=== PATIENT | female | born 1950 | race Caucasian/White ===

== ENCOUNTER 2020-02-27 09:24 | Emergency (ER) | payer MEDICARE, OTHER ==
[2020-02-27] MEDS ORDERED: cefTRIAXone 1 GM, Lidocaine 1% 2.1 ML IM ONE ×2 (09:36)
--- NOTE | 2020-02-27 09:46 | EDM.PDOC ---
ED HPI GENERAL MEDICAL PROBLEM - General Chief Complaint: Upper Extremity Injury/Pain Stated Complaint: cellulitis Time Seen by Provider: 02/27/20 09:40 Source of Information: Reports: Patient - History of Present Illness INITIAL COMMENTS - FREE TEXT/NARRATIVE: Patient comes into the emergency department with complaints of a left hand infection. Patient states that she was scratched by her cat on Saturday was seen in the clinic on Saturday and was prescribed amoxicillin. Patient states that the swelling, redness, and tenderness has increased over the course of the last 3 days. She did contact the clinic yesterday who told her to give it another 24 hours and reports emergency department if it did not get any better. Patient states that she woke up this morning her hand still progressively getting worse. She states that the redness, swelling, warmth, and tenderness is excruciating at times. She has taken Tylenol and ibuprofen to help with the pain discomfort. She also states that she is been taking amoxicillin as prescribed however she feels it is not working and it has caused significant amount of diarrhea. Patient states that she did start a probiotic last night and had no ill effects regarding the probiotic. Patient states that she is been relatively healthy has no other concerns or complaints. Patient states that she has been washing her hand on a daily basis to help keep it clean. Patient denies any range of motion or CMS concerns. Patient also denies any active fever, chest pain, shortness of breath, dizziness, lightheadedness, blurred vision, peripheral edema, or GI upset currently. Patient also denies any active COVID-19 symptoms and any positive tests. 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 Constitutional: Denies: Fever, Chills, Malaise, Weakness, Fatigue, Diaphoresis HEENT: Reports: No Symptoms Respiratory: Reports: No Symptoms Cardiovascular: Reports: No Symptoms Endocrine: Reports: No Symptoms GI/Abdominal: Reports: No Symptoms : Reports: No Symptoms Musculoskeletal: Reports: No Symptoms Skin: Reports: No Symptoms Neurological: Reports: No Symptoms Psychiatric: Reports: No Symptoms Hematologic/Lymphatic: Reports: No Symptoms Immunologic: Reports: No Symptoms ED EXAM, GENERAL - Physical Exam Exam: See Below Exam Limited By: No Limitations General Appearance: Alert, WD/WN, No Apparent Distress Nose: Normal Inspection, Normal Mucosa Throat/Mouth: Normal Inspection, Normal Lips, Normal Teeth Head: Atraumatic, Normocephalic Respiratory/Chest: No Respiratory Distress, No Accessory Muscle Use, Chest Non- Tender Cardiovascular: Normal Peripheral Pulses, Regular Rate, Rhythm Extremities: Increased Warmth, Redness, Other (left hand- 0.5cm superficial laceration. Hand mod swelling, redness, warmth, and tenderness noted. CMS and ROM intact. ). No: Slow Capillary Refill, Joint Swelling, Arm Pain, Limited Range of Motion Neurological: Alert, Oriented, Normal Cognition, Normal Gait Psychiatric: Normal Affect, Normal Mood Course - Orders/Labs/Meds Meds: Medications Discontinued Medications Generic Name Dose Route Start Last Admin Trade Name Freq PRN Reason Stop Dose Admin Ceftriaxone Sodium 1 gm/ 0 gm 02/27/20 09:36 Lidocaine HCl 2.1 ml IM 02/27/20 09:37 ONETIME ONE Departure - Departure Time of Disposition: 10:15 Disposition: Home, Self-Care 01 Condition: Good Clinical Impression: Cellulitis of hand - Discharge Information *PRESCRIPTION DRUG MONITORING PROGRAM REVIEWED*: Not Applicable *COPY OF PRESCRIPTION DRUG MONITORING REPORT IN PATIENT MARK: Not Applicable Prescriptions: cephALEXin [Keflex] 500 mg PO TID 7 Days #21 cap Instructions: Cellulitis, Adult, [id number], Cephalexin tablets or capsules, Probiotics Forms: ED Department Discharge, ED Return to Work/School Form Additional Instructions: 1. rest 2. increase your water intake 3. Take all antibiotics as prescribed even if feeling better 4. Take a probiotic while on antibiotics to help promote healthy GI motility 5. Activity and diet as tolerated 6. Can use Ibuprofen and tylenol for any fever or discomfort 7. Follow up with your PCP or return if symptoms progress or worsen 8. Education provided to you regarding your illness, probiotics, antibiotic prescribed 9. Call with any questions or concerns 10. Return if symptoms progress or worsen - Assessment/Plan Assessment:: 1. cellulitis left hand Plan: 1. Wound cleansing completed 2. 1 gm Rocephin IM given in ER. 3. Script of Keflex sent with the patient and instructed to stop amoxicillin 4. Education regarding wound care, dressing changes, OTC medications, antibiotic use, probiotic use, activity, diet, follow up care and when to seek care if warranted provided 5. Patient is to return to the clinic in 10 days to have sutures site evaluated and removed 6. Patient was encouraged to call or return if any questions or concerns arise.
== END 2020-02-27 10:10 | disposition home or self-care (01) ==
LOC: VM.ED 09:24
DX: L03.114 Cellulitis of left upper limb (principal); Z88.5 Allergy status to narcotic agent
CPT/HCPCS: 96372; 99283; J0696; J2001

== ENCOUNTER 2021-07-17 02:15 | Emergency (ER) | payer MEDICARE, OTHER ==
[2021-07-17] MEDS: GI Cocktail Oral Solution 30 ML PO ONE (03:02)
[2021-07-17] MEDS: Dicyclomine 10 MG Cap PO ONE (03:02)
[2021-07-17 03:26] LABS: ANION GAP 15.8 mmol/L (5-15)
[2021-07-17] MEDS: Ketorolac 30 MG/ML SDV IM ONE (04:00)
== END 2021-07-17 05:09 | disposition home or self-care (01) ==
LOC: VM.ED 02:15
DX: K80.50 Calculus of bile duct without cholangitis or cholecystitis without obstruction (principal); R07.89 Other chest pain
CPT/HCPCS: 36415; 71045; 80053; 82150; 83690; 84484; 85025; 93005; 96372; 99284; 99284-25; A9270-GY; J1885

== ENCOUNTER 2022-02-14 08:18 | Emergency (ER) | payer MEDICARE, OTHER ==
[2022-02-14] MEDS ORDERED: Lidocaine 4% 1 each Patch TOP PRN (08:45)
[2022-02-14] MEDS ORDERED: Lidocaine 4% 1 each Patch TOP ONE ×3 (08:53→09:15)
== END 2022-02-14 09:12 | disposition home or self-care (01) ==
LOC: VM.ED 08:18
DX: S29.012A Strain of muscle and tendon of back wall of thorax, initial encounter (principal); E78.00 Pure hypercholesterolemia, unspecified; K21.9 Gastro-esophageal reflux disease without esophagitis; Z88.5 Allergy status to narcotic agent; Z88.8 Allergy status to other drugs, medicaments and biological substances; Z79.899 Other long term (current) drug therapy; Z86.73 Personal history of transient ischemic attack (TIA), and cerebral infarction without residual deficits; X50.0XXA Overexertion from strenuous movement or load, initial encounter
CPT/HCPCS: 99283

== ENCOUNTER 2022-08-24 06:32 | Day surgery (SDC) | payer MEDICARE, OTHER ==
[~2022-08-24 06:32] MED LIST: Lactated Ringers 1,000 ML IV SCH; Sodium Chloride 0.9% 10 ML Syringe FLUSH PRN
[2022-08-24] MEDS ORDERED: Lactated Ringers 1,000 ML IV SCH (07:00)
[2022-08-24] MEDS ORDERED: fentaNYL 100 MCG/2 ML SDV ONE (07:24)
[2022-08-24] MEDS ORDERED: Propofol 200 MG/20 ML SDV ONE (07:24)
== END 2022-08-24 09:20 | disposition home or self-care (01) ==
LOC: VM.SDS 06:32
PROVIDERS: ATTEND Student in an Organized Health Care Education/Training Program
DX: K21.9 Gastro-esophageal reflux disease without esophagitis (principal); K31.89 Other diseases of stomach and duodenum; E78.00 Pure hypercholesterolemia, unspecified; F32.A Depression, unspecified; F41.1 Generalized anxiety disorder; M54.50 Low back pain, unspecified; G89.29 Other chronic pain; M85.80 Other specified disorders of bone density and structure, unspecified site; M15.9 Polyosteoarthritis, unspecified; F33.41 Major depressive disorder, recurrent, in partial remission; N32.81 Overactive bladder; F17.210 Nicotine dependence, cigarettes, uncomplicated; Z79.899 Other long term (current) drug therapy; Z88.5 Allergy status to narcotic agent; Z88.8 Allergy status to other drugs, medicaments and biological substances
CPT/HCPCS: 00731; 88305; 88342; J2704; J3010; J7120

== ENCOUNTER 2024-03-12 07:06 | Day surgery (SDC) | payer MEDICARE, OTHER ==
[2024-03-12] MEDS: Lactated Ringers 1,000 ML IV SCH (07:18)
[2024-03-12] MEDS ORDERED: Propofol 200 MG/20 ML SDV ONE ×2 (08:14→08:34)
[2024-03-12] MEDS ORDERED: fentaNYL 100 MCG/2 ML SDV ONE (08:14)
== END 2024-03-12 10:31 | disposition home or self-care (01) ==
LOC: VM.SDS 07:06
PROVIDERS: ATTEND Family Medicine
DX: Z12.11 Encounter for screening for malignant neoplasm of colon (principal); D12.0 Benign neoplasm of cecum; D12.6 Benign neoplasm of colon, unspecified; K63.5 Polyp of colon; K62.1 Rectal polyp; K31.89 Other diseases of stomach and duodenum; K21.9 Gastro-esophageal reflux disease without esophagitis; E78.5 Hyperlipidemia, unspecified; F41.1 Generalized anxiety disorder; F17.210 Nicotine dependence, cigarettes, uncomplicated; Z79.899 Other long term (current) drug therapy; Z88.5 Allergy status to narcotic agent
CPT/HCPCS: 00813; 88305; J2704; J3010; J7120